=== PATIENT | male | born 1965 | race African-American/Black ===

== ENCOUNTER 2018-09-05 18:17 | Emergency (ER) | payer BC, OTHER ==
[~2018-09-05] VITALS: Ht 182.9 cm; Wt 138.3 kg
[2018-09-05] MEDS ORDERED: fentaNYL CITRATE 100 MCG/2 ML VL IV ONE (18:30)
[2018-09-05 19:25] LABS: Basophils # (auto) 0.1 uL; Eosinophils # (auto) 0.4 uL; Eosinophils % (auto) 3.4 % (0.0-7.0); Hematocrit 41.4 % (41.0-53.0); Hemoglobin 13.6 g/dL (13.5-17.5); Lymphocytes # (auto) 3.1 uL; Lymphocytes % (auto) 28.1 % (10.0-50.0); Mean Corpuscular Hemoglobin 29.7 pg (28.0-32.0); Mean Corpuscular Hgb Conc. 32.9 g/dL (32.0-36.0); Mean Corpuscular Volume 90.5 fL (80.0-100.0); Monocytes # (auto) 0.9 uL; Neutrophils # (auto) 6.5 uL; Neutrophils % (auto) 59.5 % (37.0-80.0); Nucleated Red Blood Cells % 0.2 %; Platelet Count (auto) 207 10^3/uL (140-450); Red Blood Cells 4.58 10^6/uL (4.5-5.90); Red Cell Distribution Width 14.3 % (11.8-14.3); White Blood Cell 10.9 10^3/uL (4.4-10.8)
[2018-09-05 19:37] LABS: Albumin 3.9 g/dL (3.4-5.0); BUN/Creatinine Ratio 14.2; Calcium 9.1 mg/dL (8.5-10.1)
[2018-09-05 19:38] LABS: Bilirubin, Total 0.2 mg/dL (0.2-1.0); Total Protein 7.6 g/dL (6.4-8.2)
[2018-09-05 19:40] VITALS: BP 130/57
== END 2018-09-05 20:23 | disposition home or self-care (01) ==
LOC: ER 18:17
DX: S22.42XA Multiple fractures of ribs, left side, initial encounter for closed fracture (principal); M25.562 Pain in left knee; M25.561 Pain in right knee; M25.522 Pain in left elbow; E11.9 Type 2 diabetes mellitus without complications; I10 Essential (primary) hypertension; V29.9XXA Motorcycle rider (driver) (passenger) injured in unspecified traffic accident, initial encounter; Y93.I9 Activity, other involving external motion; Y92.89 Other specified places as the place of occurrence of the external cause; Y99.8 Other external cause status
CPT/HCPCS: 36415; 71045; 71250; 73080; 73560; 80053; 85025; 96374; 99284; J3010